=== PATIENT | female | born 1950 | race Caucasian/White ===

== ENCOUNTER 2019-04-03 16:38 | Inpatient (IN) ==
[2019-04-03] MEDS ORDERED: SALINE LOCK IV FLUID XX ONE (19:04)
[2019-04-03 19:53] LABS: BASO# 0.03 X1000 (0.0-0.2); BASO% 0.2 % (0.0-0.8); EOS# 0.08 X1000 (0.0-0.7); EOS% 0.6 % (0.0-10.0); HEMATOCRIT 31.1 % (37.0-47.0); HEMOGLOBIN 10.1 g/dL (12.0-16.0); IMM GRAN# 0.03 X1000 (0.0-0.04); IMM GRAN% 0.2 % (0.0-0.5); LYMPH# 1.68 X1000 (1.2-3.4); LYMPH% 12.8 % (20.5-51.1); MCH 27.1 PG (27-31); MCHC 32.5 g/dL (33-37); MCV 83.4 FL (81-99); MONO# 0.75 X1000 (0.11-0.59); MONO% 5.7 % (1.7-9.3); MPV 9.4 FL (7.4-10.4); NEUT# 10.55 X1000 (1.4-6.5); NEUT% 80.5 % (42.2-75.2); PLT 299 X1000 (130-400); RBC 3.73 XMIL (4.2-5.4); RDW 13.9 % (11.5-14.5); WBC 13.12 X1000 (4.8-10.8)
[2019-04-03] MEDS ORDERED: VANCOMYCIN IV PER PHARMACY MISC SCH (20:00)
[2019-04-03 20:02] LABS: INR 1.15; PROTIME 15.7 Seconds (11.0-16.0); PTT 38.7 Seconds (22.3-41.8)
--- NOTE | 2019-04-03 20:03 | Diag Imaging Result Doc PS360 ---
EXAM: TOE(S)-RIGHT 04/03/2019 HISTORY: toe infection TECHNIQUE: Right great toe three views COMMENT: There is fragmentation of the medial base of the distal phalanx which was not the case on 07/07/2018. There is definite erosion of the cortex. There is soft tissue swelling. IMPRESSION: Osteomyelitis of the distal phalanx. Electronically signed by Chris Jeffrey 04/03/2019 8:01 PM
[2019-04-03 20:12] LABS: ALB/GLOB RATIO 0.9; ALBUMIN 3.7 g/dL (3.5-5.0); CALCIUM 9.1 mg/dL (8.8-10.2); CREATININE 1.7 mg/dL (0.5-0.9); HEMOGLOBIN A1C 9.5 % (4.8-6.0); POTASSIUM 3.8 mmol/L (3.5-5.1); TOTAL BILIRUBIN 0.54 mg/dL (0.20-1.00); TOTAL PROTEIN 7.9 g/dL (6.3-8.3)
[2019-04-03 20:19] LABS: MAGNESIUM 1.8 mg/dL (1.5-2.7)
[2019-04-03 20:35] LABS: CK INDEX 0.5 (0.0-2.5); CK-MB 5.66 ng/mL (0.0-5.0)
--- NOTE | 2019-04-03 20:55 | HISTORY AND PHYSICAL ---
CHIEF COMPLAINT: Right toe pain. HISTORY OF PRESENT ILLNESS: Ms. Dior is a very pleasant, 68-year-old, female who has right toe cellulitis that has been going on for around 1 week. It has swollen greatly in diameter, has edema and erythema with some drainage noted. Dr. Hurtado has been consulted and the patient was sent from [place] to [facility] for probable debridement of the right great toe and antibiotic therapy. She has comorbidities that include diabetes mellitus, hypertension, hyperlipidemia. She states that the pain is only around a 2/10 to 3/10, somewhat throbbing. She has been taking ibuprofen for it. She will be admitted and placed on the medical floor for further evaluation and treatment. PAST MEDICAL HISTORY: See history of present illness. PREVIOUS SURGICAL HISTORY: Cholecystectomy and hysterectomy. SOCIAL HISTORY: She lives home alone. Family is close by. No alcohol, tobacco or illicit drug use. FAMILY HISTORY: Diabetes mellitus in all first-degree relatives including siblings. Also has 1 sibling who had breast cancer. I believe her father had lymphoma. ALLERGIES: No known drug allergies. HOME MEDICATIONS: The patient was unsure of the medication names or the dosages. Nursing is working on reconciling home medications and placing them in the computer. REVIEW OF SYSTEMS: A full 14-point review of systems was conducted with the patient. Pertinent positives listed above in the HPI. All other systems are reviewed and negative. PHYSICAL EXAMINATION: VITAL SIGNS: Temperature 99.3 degrees, pulse 98, respirations 18, blood pressure 154/52, oxygen saturation 97% on room air. GENERAL: A pleasant, 68-year-old, female lying in the medical floor bed. Answers all questions appropriately. She is alert and oriented x 3. HEENT: Head is atraumatic, normocephalic. Pupils equal, round and reactive to light. Extraocular movements intact. Sclerae anicteric. Conjunctivae mildly pale. Oral mucosa is moist. NECK: Supple. No JVD. No thyromegaly. Trachea is midline. No cervical lymphadenopathy. CARDIOVASCULAR: S1, S2 appreciated. No murmurs, rubs or gallops. LUNGS: Clear to auscultation bilaterally. No rales, rhonchi or wheezes. Symmetric rise and fall respirations. ABDOMEN: Protuberant, soft, nontender, nondistended. Bowel sounds present is all 4 quadrants. Normoactive. No pulsatile masses or organomegaly. EXTREMITIES: No clubbing or cyanosis. Edema to the right great toe with erythema. Other lower extremities are not edematous. Some mild drainage coming from that toe as well. Pedal pulses are 2+. DIAGNOSTIC DATA: X-rays of the right toe are pending. LABORATORY DATA: New laboratory data is pending. Labs from [facility]: Patient's white blood cell count was 13,000, hemoglobin 10, hematocrit 30. BUN 37, creatinine 1.6. ASSESSMENT AND PLAN: 1. Right great toe cellulitis. Dr. Hurtado has been consulted to likely dbride the toe. Blood cultures are pending. We will start patient on vancomycin and Rocephin. Tylenol as needed for pain. We will prescribe something stronger if needed. The patient did not want anything stronger than Tylenol at this time. 2. Acute kidney injury versus chronic kidney disease. The patient's baseline creatinine is not known. She was at 1.6. We will give fluids at this time and recheck laboratory data tomorrow morning. 3. Hyperlipidemia. We will continue her statin once order is placed. 4. Diabetes mellitus type 2, now insulin dependent. We will start sliding-scale insulin with fingerstick blood sugars. Start patient on heart healthy diabetic diet. Further recommendations per patient's clinical course. Dictated by WEI Johnson for Rubin Noriega MD I have performed a face to face diagnostic evaluation. Labs/ Xrays- reviewed. Exam- Rt great toe edema. A/P- Rt great toe cellulitis/ wound- Admit, IV abx, Gerneral surgery consult. Dr. Noriega cc: WEI Johnson MD [facility]
[2019-04-03] MEDS: ZOSYN 2.25 GM in NS 50 ML IV SCH (21:44)
[2019-04-03] MEDS: TYLENOL PO PRN (21:44)
[2019-04-03] MEDS: NS 1,000 ML IV SCH (21:45)
[2019-04-03] MEDS: HUMALOG SUBQ SCH (21:57)
[2019-04-03] MEDS ORDERED: VANCOMYCIN 2,250 MG in NS 500 ML IV ONE (22:00)
[2019-04-04] MEDS: ZOSYN 2.25 GM in NS 50 ML IV SCH ×4 (01:36→20:40)
[2019-04-04 02:29] LABS: URINE SOURCE CLEAN CATCH
[2019-04-04 02:41] LABS: BILIRUBIN URINE NEGATIVE (NEGATIVE); BLOOD URINE NEGATIVE (NEGATIVE); COLOR YELLOW; GLUCOSE URINE 100 mg/dL (NEGATIVE); KETONE URINE NEGATIVE (NEGATIVE); LEUKOCYTES URINE SMALL (NEGATIVE); NITRITE URINE NEGATIVE (NEGATIVE); PROTEIN URINE NEGATIVE (NEGATIVE); SP GRAVITY URINE 1.011; TURBIDITY URINE CLEAR (CLEAR); UROBILINOGEN URINE NORMAL (NORMAL)
[2019-04-04 02:42] LABS: UR EPITHELIAL CELLS <10 /HPF (<10); URINE BACTERIA NEGATIVE /HPF; URINE RBC <10 /HPF (<10); URINE WBC <10 /HPF (<10)
[2019-04-04] MEDS: HUMALOG SUBQ SCH ×4 (06:35→20:40)
[2019-04-04 06:51] LABS: BASO# 0.02 X1000 (0.0-0.2); BASO% 0.2 % (0.0-0.8); EOS# 0.16 X1000 (0.0-0.7); EOS% 1.8 % (0.0-10.0); HEMATOCRIT 28.9 % (37.0-47.0); HEMOGLOBIN 9.2 g/dL (12.0-16.0); IMM GRAN# 0.03 X1000 (0.0-0.04); IMM GRAN% 0.3 % (0.0-0.5); LYMPH# 1.34 X1000 (1.2-3.4); LYMPH% 15.4 % (20.5-51.1); MCH 26.9 PG (27-31); MCHC 31.8 g/dL (33-37); MCV 84.5 FL (81-99); MONO# 0.71 X1000 (0.11-0.59); MONO% 8.2 % (1.7-9.3); MPV 9.7 FL (7.4-10.4); NEUT# 6.42 X1000 (1.4-6.5); NEUT% 74.1 % (42.2-75.2); PLT 267 X1000 (130-400); RBC 3.42 XMIL (4.2-5.4); RDW 13.9 % (11.5-14.5); WBC 8.68 X1000 (4.8-10.8)
[2019-04-04 07:17] LABS: CALCIUM 8.8 mg/dL (8.8-10.2); CREATININE 1.6 mg/dL (0.5-0.9); POTASSIUM 3.8 mmol/L (3.5-5.1)
[2019-04-04] MEDS: PRILOSEC PO SCH (09:08)
--- NOTE | 2019-04-04 09:30 | GENERAL SURGERY CONSULTATION ---
DATE: 04/04/2019 CHIEF COMPLAINT: Drainage from the right great toe. HISTORY OF PRESENT ILLNESS: This is a pleasant 68-year-old, diabetic female, who was sent here from [facility] Emergency Department. She has a history of callus and ulcer on the posteromedial aspect of her right great toe that has developed into swelling and drainage over the past week. She was seen in the emergency department in [place], sent here, admitted. She does have diabetes mellitus, hypertension, hyperlipidemia. PAST SURGICAL HISTORY: Previous surgery includes a cholecystectomy, hysterectomy. MEDICATIONS: Not recorded. ALLERGIES: She has no known drug allergies. FAMILY HISTORY: Pertinent for diabetes. SOCIAL HISTORY: She lives alone. Denies alcohol, tobacco or drug use. REVIEW OF SYSTEMS: Negative, except for drainage of her great toe. PHYSICAL EXAMINATION: Vital Signs: Temperature is 99.9 degrees, heart rate 78, blood pressure 94/39. Neck: No cervical adenopathy. Lungs: Sound clear. Heart: Regular rate and rhythm. Abdomen: Soft. Extremities: She has normal pedal pulses. She has a right great toe that is very enlarged and has drainage from 2 aspects of her great toe distally. It is mildly tender to palpation. DIAGNOSTICS/LABS: White count is 8700 today hemoglobin 9.2, hematocrit 28.9. BUN 19, creatinine 1.6. X-ray does show osteomyelitis of the distal phalanx. INTERPRETATION: Diabetic right great toe infection with osteomyelitis of the distal phalanx. PLAN: IV antibiotic therapy, and I will recommend a partial amputation of the right great toe. We will have to remove the distal phalanx. cc: Oren Hurtado MD MTDD
--- NOTE | 2019-04-04 10:10 | PROGRESS NOTE ---
DATE: 04/04/2019 SUBJECTIVE: This morning Ms. Dior refers to be doing well. Still has some discomfort in the right big toe, still exuding some purulence. OBJECTIVE: Vital signs: Blood pressure is 94/39, pulse of 74, respiration is 20, temperature is 99.9 degrees. General: Ms. Dior is a 68-year-old female. She is in bed, no distress. Mucosa is pink and moist. Anicteric. Acyanotic. Neck: Supple. Chest: Good air entry bilateral. No crepitations. No rhonchi. Cardiovascular: Regular rate and rhythm. No murmurs, no rubs, no gallops. GI: Abdomen is soft, nontender. Bowel sounds present. Extremities: No pedal edema. The right foot is covered with sterile dressing. Especially the big toe looks remarkably swollen with some purulence exuding from the medial and the bottom part. LABORATORY DATA: WBC is down to 8.68, hemoglobin is 9.2, platelet count of 267,000. Chemistry is all reviewed, normal. Creatinine is 1.6. It was 1.7 yesterday. The patient seems to have a baseline of 1.2 from 2013. An x-ray yesterday shows osteomyelitis of the distal phalanx of the right big toe. ASSESSMENT: 1. Sepsis secondary to skin and soft tissue infection of the big toe associated with osteomyelitis. The patient is currently on IV antibiotics. Surgery has been consulted. 2. Osteomyelitis to the big right toe distally. Surgery has been consulted. There is a plan for possible amputation. 3. Diabetes mellitus. We will continue with insulin. Patient's A1c is 9.5. 4. Acute on chronic kidney failure. We will dose all medications renally and avoid any nephrotoxins. In general, I think Ms. Dior is doing well. She had osteomyelitis with skin and soft tissue infection of the big toe on the right. Surgery has evaluated her. There is a plan for partial amputation of the right big toe sometimes today. Dr. Hurtado is on board. We are going to continue with the current antimicrobial therapy. I have changed the vancomycin because of the renal impairment. We will put the patient on Zyvox, to continue with the Zosyn. cc: Masno Marte MD
[2019-04-04] MEDS: ZYVOX 600 MG/D5W 600 MG/300 ML IVPB IV SCH ×2 (12:40→21:33)
[2019-04-04] MEDS: NS 1,000 ML IV SCH (12:41)
[2019-04-04] MEDS: TYLENOL PO PRN (21:33)
[2019-04-05] MEDS: ZOSYN 2.25 GM in NS 50 ML IV SCH ×3 (01:43→22:16)
[2019-04-05] MEDS: ZOFRAN IV PRN (04:36)
[2019-04-05 06:30] LABS: ALBUMIN 3.1 g/dL (3.5-5.0); CALCIUM 8.5 mg/dL (8.8-10.2); CREATININE 1.4 mg/dL (0.5-0.9); PHOSPHORUS 3.6 mg/dL (2.7-4.5); POTASSIUM 4.2 mmol/L (3.5-5.1)
[2019-04-05] MEDS: HUMALOG SUBQ SCH ×4 (06:55→22:16)
--- NOTE | 2019-04-05 08:04 | GENERAL SURGERY PROGRESS NOTE ---
DATE: 04/05/2019 Ms. Dior is afebrile. Hemodynamics were satisfactory. She does report some nausea. Her toe is inspected and still, it is quite swollen and infected. Her white count is now down to normal. Chemistry shows a BUN of 15 and creatinine of 1.4. The plan will be to do a partial amputation of her right great toe tomorrow. I think we will have to leave it open because of the degree of infection but we will be able to get rid of her distal phalanx. I have discussed this with her. She understands and agrees to proceed. cc: Oren Hurtado MD
[2019-04-05] MEDS ORDERED: VANCOMYCIN 2 GM in NS 500 ML IV SCH (10:00)
[2019-04-05] MEDS: NS 1,000 ML IV SCH (10:48)
[2019-04-05] MEDS: PRILOSEC PO SCH (10:49)
[2019-04-05] MEDS: ZYVOX 600 MG/D5W 600 MG/300 ML IVPB IV SCH ×2 (10:50→22:21)
[2019-04-05] MEDS: TYLENOL PO PRN (10:57)
--- NOTE | 2019-04-05 14:26 | PROGRESS NOTE ---
DATE: 04/05/2019 SUBJECTIVE: This morning, Ms. Dior refers to be doing well. Denies any new complaints except for pain in her right big toe. OBJECTIVE: Vital Signs: Blood pressure is 131/55, pulse of 89, respirations are 20, temperature is 98.9 degrees. General Examination: Ms. Dior is a 68-year-old, female. She is in bed. No distress. HEENT: Mucosa is pink and moist. Anicteric. Acyanotic. Neck: Supple. Chest: Clear to auscultation. No crepitations. No rhonchi. Cardiovascular: Regular rate and rhythm. Abdomen: Soft, nontender. Bowel sounds present. Extremities: No pedal edema. The right foot is covered in a sterile dressing. When I went in, the nurse was just about to finish up the dressing. I took a look at the toe. The big toe is remarkably swollen and erythematous and tender. Laboratory Data: No CBC. Chemistry is also reviewed. Creatinine is down to 1.4. So far, blood cultures have been 48 hours negative. ASSESSMENT: 1. Sepsis on presentation secondary to skin and soft tissue infection of the big toe associated with osteomyelitis. 2. Osteomyelitis to the distal phalanx of the big right toe. Surgery has been consulted and there is a plan for exploration tomorrow. 3. Diabetes mellitus type 2 with a presenting A1c of 9.5. Patient is on insulin regimen. 4. Acute on chronic renal failure. Creatinine is down to 1.4. We will continue to avoid any nephrotoxins. PLAN: In general, I think Ms. Dior is doing well. Still has some swelling on the right big toe with fluctuance. There is a plan for surgical exploration tomorrow. Glucose is better controlled today. cc: Mason Marte MD
[2019-04-05] MEDS ORDERED: LASIX IV ONE (15:58)
[2019-04-05] MEDS ORDERED: ALBUTEROL NEB INH ONE (16:02)
[2019-04-05] MEDS ORDERED: LASIX ONE (16:10)
[2019-04-05] MEDS: ALBUTEROL NEB INH SCH ×3 (16:11→23:29)
--- NOTE | 2019-04-05 17:25 | Diag Imaging Result Doc PS360 ---
EXAM: CT THORAX W/O CONTRAST 04/05/2019 HISTORY: SOB TECHNIQUE: This exam was performed using automated exposure control, adjustment of mA or kV according to patient size, and/or use of iterative reconstruction technique. COMMENT: There has been no previous chest radiograph since 05/16/2018. No previous CTs are available for comparison. There is increased interstitial opacity bilaterally consistent with pulmonary edema. There are platelike atelectatic changes in the right lobe and both lower lobes. There is alveolar opacity in the lower lobes particularly the right lower lobe. There are bilateral pleural effusions more so on the right than the left. There has been cholecystectomy. There are calcifications in the mitral valve annulus. There are coronary calcifications. There are nonspecific precarinal and aorticopulmonary window nodes as well as a right paratracheal node measuring over 13 mm. IMPRESSION: Pulmonary edema and pleural effusions. The possibility of pneumonia particularly in the right lower lobe cannot be excluded. Electronically signed by Chris Jeffrey 04/05/2019 5:22 PM
[2019-04-05] MEDS: HEPARIN SUBQ SCH (22:16)
[2019-04-06] MEDS: ZOSYN 2.25 GM in NS 50 ML IV SCH ×4 (01:23→23:03)
[2019-04-06] MEDS: ALBUTEROL NEB INH SCH ×6 (03:29→23:07)
[2019-04-06 06:33] LABS: BASO# 0.03 X1000 (0.0-0.2); BASO% 0.3 % (0.0-0.8); EOS# 0.01 X1000 (0.0-0.7); EOS% 0.1 % (0.0-10.0); HEMATOCRIT 28.6 % (37.0-47.0); IMM GRAN# 0.04 X1000 (0.0-0.04); IMM GRAN% 0.4 % (0.0-0.5); LYMPH# 1.64 X1000 (1.2-3.4); LYMPH% 16.1 % (20.5-51.1); MCH 26.5 PG (27-31); MCHC 31.5 g/dL (33-37); MCV 84.4 FL (81-99); MONO# 0.73 X1000 (0.11-0.59); MONO% 7.2 % (1.7-9.3); MPV 9.4 FL (7.4-10.4); NEUT# 7.72 X1000 (1.4-6.5); NEUT% 75.9 % (42.2-75.2); PLT 295 X1000 (130-400); RBC 3.39 XMIL (4.2-5.4); RDW 14.2 % (11.5-14.5); WBC 10.17 X1000 (4.8-10.8)
[2019-04-06 07:41] LABS: ALBUMIN 3.3 g/dL (3.5-5.0); CALCIUM 7.9 mg/dL (8.8-10.2); CREATININE 1.4 mg/dL (0.5-0.9); PHOSPHORUS 3.3 mg/dL (2.7-4.5); POTASSIUM 3.3 mmol/L (3.5-5.1)
[2019-04-06] MEDS ORDERED: XYLOCAINE-MPF 2% ONE (08:20)
[2019-04-06] MEDS ORDERED: DIPRIVAN 1% ONE (08:20)
--- NOTE | 2019-04-06 09:08 | EKG Report ---
Test Performed on : 04/05/2019 4:04:07 PM Test Reason : sob Blood Pressure : / mmHG Vent. Rate : 109 BPM Atrial Rate : 109 BPM P-R Int : 132 ms QRS Dur : 088 ms QT Int : 346 ms P-R-T Axes : 055 006 048 degrees QTc Int : 465 ms Sinus tachycardia. with occasional premature ventricular complexes. Nonspecific ST abnormality Abnormal ECG No previous ECGs available Confirmed by Kingston Cassidy MD ([id number]) on 04/07/2019 10:08:29 PM
[2019-04-06] MEDS ORDERED: ZOFRAN ONE (09:30)
[2019-04-06] MEDS ORDERED: HUMALOG SUBQ ONE (10:45)
[2019-04-06] MEDS ORDERED: NORCO-7.5 PO PRN (11:03)
[2019-04-06] MEDS: PRILOSEC PO SCH (11:05)
[2019-04-06] MEDS: ZYVOX 600 MG/D5W 600 MG/300 ML IVPB IV SCH ×3 (11:05→22:49)
[2019-04-06] MEDS: HUMALOG SUBQ SCH ×4 (11:05→20:52)
--- NOTE | 2019-04-06 13:13 | OPERATIVE NOTE ---
PROCEDURE DATE: 04/06/2019 PROCEDURE: Partial right great toe amputation. SURGEON: Oren Hurtado MD. AFTER SCHOOL COORDINATOR: Key. PREOPERATIVE DIAGNOSIS: Right great toe diabetic infection with chronic osteomyelitis. POSTOPERATIVE DIAGNOSIS: Right great toe diabetic infection with chronic osteomyelitis. DESCRIPTION OF PROCEDURE: Satisfactory general anesthesia was achieved. The right foot was prepped and draped in a sterile fashion. We made a fishmouth hung on the toe in the mid aspect. We incised the skin, and carried our incision deep to the bone. The distal phalanx was actually fractured. We went through the interphalangeal joint to amputate the toe. There is really not any purulence seen. We went ahead and cultured the tissue however. We then decided to raise the periosteum, and use the Shayna bone biter and rongeur to take back the proximal phalanx to its mid aspect to allow closure of the skin since there was no obvious purulence. We copiously irrigated the wound. The skin edges seemed to come together without undue tension. We excised all the tendinous tissue. We then proceeded to place 3-0 nylon simple stitches in the skin to approximate this anterior flap of the posterior flap. After the toe was adequately closed, we then covered with Xeroform gauze followed by sterile 4x4s, and a sterile Colt. She tolerated it well, and was sent to the recovery room in satisfactory condition. cc: Oren Hurtado MD
--- NOTE | 2019-04-06 14:01 | PROGRESS NOTE ---
DATE: 04/06/2019 SUBJECTIVE: Today, Ms. Dior was fairly stable. Did not have any new complaints. Was just awaiting for her surgery. OBJECTIVE: Vital Signs: Blood pressure was 136/59, pulse of 85, respirations are 17, temperature is 98.1 degrees. General Examination: Ms. Dior is a 68-year-old, female. She was in bed. No distress. HEENT: Mucosa is pink and moist. Anicteric. Acyanotic. Neck: Supple. Chest: Air entry was bilaterally reduced. Distant crackles posteriorly but much, much better than yesterday. Extremities: Trace pedal edema. The right foot was covered in a sterile dressing. TESTER REGULATOR: The patient was awake, alert, and oriented. Laboratory Data: WBCs 10.17, hemoglobin is 9.0, platelet count of 295,000. Chemistry is also reviewed. Potassium is 3.3, creatinine is 1.4 which is just like yesterday, and glucose is 283. ASSESSMENT: 1. Sepsis on presentation secondary to skin and soft tissue infection. 2. Osteomyelitis of the distal phalanx of the big right toe associated with surrounding cellulitis. The patient is pending surgical exploration today. A culture from [facility] seems to suggest methicillin-resistant Staphylococcus aureus. The patient is on adequate antimicrobial coverage. There is a culture which is growing also here and it is a gram-positive cocci. We will await for the final identification and sensitivity. 3. Diabetes mellitus with presenting A1c of 9.5. We will continue with insulin regimen. 4. Acute on chronic renal failure. Creatinine is down to 1.4. It seems like this is now the patient's new normal. We are going to continue observing this and avoid any nephrotoxins. PLAN: In general, Ms. Dior is fairly stable now. Shortness of breath, which happened yesterday, has significantly improved with diuretic therapy. She is pending surgical exploration of the right big toe. We will follow up after the surgery. cc: Mason Marte MD
[2019-04-06] MEDS: HEPARIN SUBQ SCH ×2 (18:20→20:52)
[2019-04-07] MEDS: ALBUTEROL NEB INH SCH ×6 (03:25→23:28)
[2019-04-07] MEDS: ZOSYN 2.25 GM in NS 50 ML IV SCH ×2 (05:33→12:33)
[2019-04-07] MEDS: HUMALOG SUBQ SCH ×4 (06:22→22:13)
[2019-04-07] MEDS ORDERED: PNEUMOVAX 23 IM ONE (06:36)
[2019-04-07 06:55] LABS: BASO# 0.01 X1000 (0.0-0.2); BASO% 0.1 % (0.0-0.8); EOS# 0.02 X1000 (0.0-0.7); EOS% 0.2 % (0.0-10.0); HEMATOCRIT 26.3 % (37.0-47.0); HEMOGLOBIN 7.9 g/dL (12.0-16.0); IMM GRAN# 0.03 X1000 (0.0-0.04); IMM GRAN% 0.3 % (0.0-0.5); LYMPH# 1.67 X1000 (1.2-3.4); LYMPH% 16.4 % (20.5-51.1); MCH 25.6 PG (27-31); MCV 85.4 FL (81-99); MONO% 4.9 % (1.7-9.3); MPV 9.4 FL (7.4-10.4); NEUT# 7.97 X1000 (1.4-6.5); NEUT% 78.1 % (42.2-75.2); PLT 294 X1000 (130-400); RBC 3.08 XMIL (4.2-5.4); RDW 14.2 % (11.5-14.5)
[2019-04-07 07:24] LABS: ALBUMIN 2.9 g/dL (3.5-5.0); CALCIUM 8.7 mg/dL (8.8-10.2); CREATININE 1.1 mg/dL (0.5-0.9); PHOSPHORUS 3.1 mg/dL (2.7-4.5); POTASSIUM 4.1 mmol/L (3.5-5.1)
[2019-04-07] MEDS: PERIDEX MT SCH ×2 (09:54→22:12)
[2019-04-07] MEDS: ZYVOX 600 MG/D5W 600 MG/300 ML IVPB IV SCH (09:54)
[2019-04-07] MEDS: PRILOSEC PO SCH (09:55)
[2019-04-07] MEDS: HEPARIN SUBQ SCH ×2 (09:55→22:13)
[2019-04-07] MEDS: TYLENOL PO PRN (12:33)
--- NOTE | 2019-04-07 15:00 | PROGRESS NOTE ---
DATE: 04/07/2019 SUBJECTIVE: This morning Ms. Dior refers to be doing a whole lot better. She underwent a distal phalanx amputation of the right big toe yesterday. This morning she is doing well. OBJECTIVE: Vital signs: Blood pressure is 127/52, pulse of 85, respiration is 24, and temperature is 98.7 degrees. General exam: Ms. Dior is a 68-year-old female. She is in bed. She is not in any cardiopulmonary distress. HEENT: Mucosa is pink and moist. Anicteric. Acyanotic. Neck: Supple. Chest: Good air entry bilaterally. No crepitations. No rhonchi. Cardiovascular: Regular rate and rhythm. No murmurs, no rubs, no gallops. Abdomen: Soft, nontender. Bowel sounds present. Extremities: Trace pedal edema. The right foot has a sterile dressing over the big toe. OFFICE CLIN ASST: Patient is awake, alert and oriented. LABORATORY DATA: WBC is 10.24, hemoglobin is 7.9, platelet count of 294. Chemistry is also reviewed, completely normal. Creatinine is down to 1.1. Glucose is minimally elevated. So far, the culture from the right big toe has shown Staph epidermidis, which is oxacillin sensitive. ASSESSMENT: 1. Sepsis on presentation secondary to skin and soft tissue infection. 2. Osteomyelitis of the distal phalanx of the right big toe associated with surrounding cellulitis. Culture positive for methicillin-sensitive Staphylococcus aureus. The patient is status post distal phalanx amputation with primary closure. Antibiotics have been changed to target the methicillin-sensitive Staphylococcus aureus. 3. Diabetes mellitus with presenting A1c of 9.5. Patient is currently on insulin regimen, and she is doing well. 4. Acute on chronic renal failure. Creatinine is down to 1.1. 5. Normocytic anemia, which seems to be chronic, but has acutely worsened because of blood loss during surgery and also dilution. Hemoglobin/hematocrit is still okay. No need for any transfusion at this point. PLAN: So, in general, Ms. Dior is doing well. She is day 1 post right big toe distal phalanx amputation with primary closure. She seems to be doing well. Surgery is on board. The culture of the specimen has grown MSSA, and we have changed her antimicrobial to Ancef. The patient can be discharged on oral Keflex whenever she is cleared from Surgery standpoint. cc: Mason Marte MD
[2019-04-07] MEDS: KEFZOL 2 GM/D5W 2 GM/50 ML IVPB IV SCH ×2 (17:31→22:13)
--- NOTE | 2019-04-07 19:29 | GENERAL SURGERY PROGRESS NOTE ---
DATE: 04/07/2019 SUBJECTIVE: Ms. Dior's toe wound looks fine. White count is 10,200, hemoglobin 7.9, hematocrit 26.3. She is afebrile. We will re-wrap her toe. I think after couple days of IV antibiotics. We could switch her to p.o. and allow her to be discharged. cc: Oren Hurtado MD
[2019-04-08] MEDS: TYLENOL PO PRN ×2 (00:06→10:56)
[2019-04-08] MEDS: ALBUTEROL NEB INH SCH ×5 (03:16→19:37)
[2019-04-08] MEDS: ZOFRAN IV PRN (05:07)
[2019-04-08] MEDS: KEFZOL 2 GM/D5W 2 GM/50 ML IVPB IV SCH ×3 (06:25→22:02)
[2019-04-08] MEDS: HUMALOG SUBQ SCH ×4 (06:26→21:07)
[2019-04-08 06:32] LABS: HEMATOCRIT 26.6 % (37.0-47.0); HEMOGLOBIN 8.2 g/dL (12.0-16.0); MCH 27.1 PG (27-31); MCHC 30.8 g/dL (33-37); MCV 87.8 FL (81-99); MPV 9.2 FL (7.4-10.4); RBC 3.03 XMIL (4.2-5.4); RDW 14.2 % (11.5-14.5); WBC 8.56 X1000 (4.8-10.8)
[2019-04-08 06:58] LABS: ALBUMIN 3.3 g/dL (3.5-5.0); CALCIUM 8.5 mg/dL (8.8-10.2); CREATININE 1.1 mg/dL (0.5-0.9); PHOSPHORUS 3.4 mg/dL (2.7-4.5); POTASSIUM 3.8 mmol/L (3.5-5.1)
[2019-04-08] MEDS: HEPARIN SUBQ SCH ×2 (09:07→21:08)
[2019-04-08] MEDS: PRILOSEC PO SCH (09:07)
[2019-04-08] MEDS: PERIDEX MT SCH ×2 (09:07→21:07)
[2019-04-08] MEDS: LANTUS INSULIN SUBQ SCH (16:21)
--- NOTE | 2019-04-08 19:13 | PROGRESS NOTE ---
DATE: 04/08/2019 INTERVAL HISTORY: The patient reports good control of pain status post right first toe amputation. No new complaints. No acute events overnight. Remains afebrile. REVIEW OF SYSTEMS: A 12-point review of systems negative except as per interval history. LABORATORY: WBC 8.5, hemoglobin 8.2, hematocrit 26.6, platelets 328,000. Basic metabolic panel unremarkable, aside from BUN 13, creatinine 1.1, glucose 234. PHYSICAL EXAMINATION: Vitals: Temperature max 99.2 degrees, pulse 87, respirations 16, blood pressure 152/67, O2 saturation 96% on room air. General: No acute distress. HEENT: Normocephalic, atraumatic. Moist mucous membranes. No cervical adenopathy. Cardiovascular: Regular rate and rhythm. No murmurs, rubs, or gallops. Pulmonary: Clear to auscultation bilaterally. Abdomen: Soft, nontender, nondistended. Bowel sounds positive. Extremities: Peripheral pulses decreased, but intact. Right foot heavily dressed. Trace lower extremity edema bilaterally, right slightly more than left. Neurologic: Cranial nerves grossly intact. No focal deficits identified. Psychiatric: Normal mood and affect. Awake, alert, oriented x3. Skin: No new rashes or lesions identified. ASSESSMENT AND PLAN: 1. Sepsis. Admission secondary to infection as below. 2. Osteomyelitis of right first toe with chronic cellulitis. Culture positive for MSSA. Status post amputation by Surgery. On antibiotics with cefazolin currently. Surgery wants at least a couple of days of IV antibiotics given definitive source control. Can likely be transitioned to Keflex after that and discharged to home. 3. Acute kidney injury on chronic kidney disease III. Creatinine improved back to baseline. 4. Diabetes mellitus. Glucose control not quite ideal. Will put her back on some low-dose Lantus and monitor. 5. Anemia of chronic disease. Stable. Monitor. 6. Hyperlipidemia. Continue statin. 7. Peripheral neuropathy. Holding gabapentin currently. [facility]
[2019-04-09] MEDS: ALBUTEROL NEB INH SCH ×3 (00:12→08:05)
[2019-04-09] MEDS: KEFZOL 2 GM/D5W 2 GM/50 ML IVPB IV SCH (07:17)
[2019-04-09] MEDS: HUMALOG SUBQ SCH (07:17)
[2019-04-09 07:42] VITALS: BP 158/70
[2019-04-09] MEDS: LANTUS INSULIN SUBQ SCH (09:20)
[2019-04-09] MEDS: PERIDEX MT SCH (09:21)
[2019-04-09] MEDS: HEPARIN SUBQ SCH (09:21)
[2019-04-09] MEDS: PRILOSEC PO SCH (09:21)
--- NOTE | 2019-04-09 13:56 | GENERAL SURGERY PROGRESS NOTE ---
DATE: 04/09/2019 Ms. Dior is now 3 days after her partial toe amputation. Her wound is satisfactory. She is up on her foot. Her microbiology reveals methicillin-sensitive Staphylococcus. It is okay with me that she would be discharged home. I am recommending dicloxacillin 500 mg 4 times a day. I will have her return to see me in the office in 11 days for follow-up. cc: Oren Hurtado MD
--- NOTE | 2019-04-10 22:23 | Extremity Venous Study ---
PROCEDURE NAME: Venous U/S Bilateral Legs - 04/05/2019 PROCEDURE PERFORMED: Bilateral lower extremity venous duplex and color flow imaging study using the [employer] vivid E9 ultrasound system with a 9 L-D transducer REFERRING PHYSICIAN: Mason Marte MD GARMENT FORM ASSEMBLER: Katharine Reese RVT. INDICATIONS: A 68-year-old female with shortness of breath, infection right great toe, rule out deep venous thrombosis. FINDINGS: Right common femoral vein and its branches, deep and superficial femoral veins were satisfactorily imaged. They had flow through them and were compressible. Right popliteal vein and the deep veins below the right knee were all compressible and had flow through them. The superficial veins of the right lower extremity were compressible throughout their length. The left common femoral vein and its branches, deep and superficial femoral veins were also satisfactorily imaged. They had flow through them and were compressible. Left popliteal vein and the deep veins of the left knee were all compressible and had flow through them. The superficial veins of the left lower extremity were compressible throughout their length. INTERPRETATION: No evidence of acute deep or superficial venous thrombosis of the bilateral lower extremities. cc: MD Mason Summers MD
--- NOTE | 2019-04-13 05:35 | DISCHARGE SUMMARY ---
ADMISSION DATE: 04/03/2019 DISCHARGE DATE: 04/09/2019 CONSULTS: General surgery, Dr. Hurtado. PROCEDURES: Right first toe amputation. PERTINENT STUDIES: Toe x-ray on admission showing osteomyelitis at the distal phalanx. Bilateral lower extremity ultrasound showing no clot. DISCHARGE DIAGNOSES: 1. Osteomyelitis of right first toe with cellulitis. 2. Sepsis. 3. Acute kidney injury on chronic kidney disease 3. 4. Diabetes mellitus. 5. Anemia of chronic disease. 6. Hyperlipidemia. 7. Peripheral neuropathy. HOSPITAL COURSE: The patient is a 68-year-old female with history of intermittently poorly controlled diabetes. She presented with right toe cellulitis for a week that had become markedly swollen and erythematous with some drainage. X-ray strongly suggested osteomyelitis. She was actually transferred from [place] to [facility] to be evaluated by Surgery for debridement versus amputation. She was started on antibiotics with vancomycin, Rocephin and was evaluated by Dr. Hurtado from Orthopedic Surgery. They determined that amputation was the best course and after discussion with the patient this was pursued. Amputation was performed on the . Subsequently, her antibiotics were continued due to the significant edema and cellulitis of the surrounding toe. This did improve gradually. Cultures grew out MSSA so she was transitioned to cefazolin and discharged on p.o. dicloxacillin. She also had a mild acute kidney injury on admission. Creatinine was 1.7 on admission. With fluids and treatment of her infection, this trended down to 1.1, which was thought to be her baseline CKD 3. Her diabetes was relatively stable. She had a mild anemia which was also stable and favored to be anemia of chronic disease. The day of discharge, she was ambulating on the foot without difficulty. Her pain was significantly improved and her cellulitis was almost resolved. She was discharged home in stable condition with p.o. antibiotics to follow up with PCP and General Surgery. Patient's insulin requirements while she was in the hospital were significantly less than what she reported taking at home. She reported taking 80 units of Lantus. Here, she became reasonably well controlled on 20 to 30 units of insulin. Sugars at that point were largely in the low 200s. Because of this, her home Lantus was decreased to 40 at least for now. Discussed with patient to keep close track of her blood glucose over the next few days and that she may need to return to her previous doses as she resumes her home diet. DISCHARGE VITALS: Temperature 98.4 degrees, pulse 83, respirations 18, blood pressure 158/70, O2 saturation 94%. DISCHARGE DIET: Diabetic. DISCHARGE MEDICATIONS: Pravastatin 40 mg p.o. at bedtime, aspirin 81 mg p.o. daily, gabapentin 300 mg p.o. b.i.d., Lantus 40 units subcutaneous daily, dicloxacillin 500 mg p.o. q.6 hours, [place] 7.5/325 q.4 hours p.r.n. FOLLOWUP AND PLAN: Patient discharged home to follow up with PCP and Surgery. Continue oral antibiotic. Return to seek medical care if there is any increase in swelling, redness, or drainage. TIME SPENT: Greater than 30 minutes spent arranging discharge and counseling patient.
== END 2019-04-09 11:38 | disposition home or self-care (01) | DRG 854 ==
LOC: SUATTDRO 16:38 → DIRADM 16:38 → 4N 18:36
PROVIDERS: ATTEND Internal Medicine
CPT/HCPCS: 71250; 73660; 80048; 80053; 80069; 81001; 82550; 82553; 82948; 83036; 83735; 84443; 84484; 85025; 85027; 85379; 85610; 85730; 87040; 87070; 87075; 87077; 87088; 87186; 87205; 88305; 90732; 93005; 93010; 93970; 94640; 94761; 94799; A9270; J0690; J1644; J1815; J1940; J2020; J2405; J2543; J3370; J7030; J7040; XXXXX